=== PATIENT | female | born 1990 | race Caucasian/White ===

== ENCOUNTER 2017-08-06 20:21 | Inpatient (IN) | payer MEDICAID ==
[~2017-08-06] VITALS: Ht 175.3 cm; Wt 106.3 kg
[2017-08-06 21:13] LABS: BASOPHILS # (AUTO) 0.06 x10^3/uL (0-0.1); BASOPHILS % (AUTO) 1 % (0-1); EOSINOPHILS % (AUTO) 6 % (1-7); LYMPHOCYTES # (AUTO) 1.62 x10^3/uL (1-3.4); LYMPHOCYTES % (AUTO) 23 % (22-44); MD NO; MEAN CORPUSCULAR HEMOGLOBIN 30.7 pg (27.0-34.8); MEAN CORPUSCULAR HGB CONC 33.5 g/dL (32.4-35.8); MEAN CORPUSCULAR VOLUME 91.5 fL (80-100); MEAN PLATELET VOLUME 9.7 fL (7.4-10.4); MONOCYTES # (AUTO) 0.77 x10^3/uL (0.2-0.8); MONOCYTES % (AUTO) 11 % (2-9); NEUTROPHILS # (AUTO) 4.14 x10^3/uL (1.8-6.8); NEUTROPHILS % (AUTO) 59 % (42-75); PLATELET COUNT 247 x10^3/uL (130-400); RED BLOOD COUNT 4.54 x10^6/uL (3.82-5.3); RED CELL DISTRIBUTION WIDTH 13.8 % (9.6-15.2)
[2017-08-06] MEDS ORDERED: SODIUM CHLORIDE 0.9% 1,000 ML IV ONE ×2 (21:19→23:00)
[2017-08-06 21:20] LABS: ALANINE AMINOTRANSFERASE 21 U/L (12-78); ALBUMIN 3.7 g/dL (3.4-5.0); ANION GAP 9 mmol/L (5-15); CALCIUM 8.1 mg/dL (8.5-10.1); CHLORIDE 110 mmol/L (98-107); CREATININE 0.71 mg/dL (0.55-1.02)
[2017-08-06 21:25] LABS: ACETAMINOPHEN < 2 mcg/mL (10-30); ALKALINE PHOSPHATASE 44 U/L (45-117); BILIRUBIN,TOTAL 0.1 mg/dL (0.2-1.0); SALICYLATE LEVEL 2.7 mg/dL (2.8-20.0); TOTAL PROTEIN 7.5 g/dL (6.4-8.2)
[2017-08-06] MEDS ORDERED: SODIUM CHLORIDE 0.9% 1,000ML IVBOLUS ONE (21:30)
[2017-08-06 22:38] LABS: CULTURE INDICATED? YES; MICROSCOPIC INDICATED
[2017-08-06 22:43] LABS: AMPHETAMINE SCREEN, URINE Positive (Negative); BARBITURATE SCREEN, URINE Negative (Negative); BENZODIAZEPINE SCREEN, URINE Positive (Negative); CANNABINOID SCREEN, URINE Positive (Negative); COCAINE SCREEN, URINE Negative (Negative); METHADONE SCREEN, URINE Negative (Negative); OPIATE SCREEN, URINE Positive (Negative)
[2017-08-06] MEDS ORDERED: SODIUM CHLORIDE FLUSH 10ML SYR IVF PRN (23:00)
[2017-08-06] MEDS ORDERED: CEFTRIAXONE PMX 1GM/50ML 50 ML IV ONE (23:00)
[2017-08-07 00:42] VITALS: BP 123/73
[2017-08-07 01:22] VITALS: BP 117/87
[2017-08-07] MEDS: SODIUM CHLORIDE 0.9% 1,000 ML IV SCH ×2 (02:14→13:21)
[2017-08-07] MEDS ORDERED: DOCUSATE 100 MG CAPSULE PO PRN (02:30)
[2017-08-07] MEDS ORDERED: morphine SULFATE 10 MG/ML, 1ML IVPush PRN (02:30)
[2017-08-07] MEDS ORDERED: OXYcodone IR 5MG TABLET PO PRN (02:30)
[2017-08-07] MEDS ORDERED: ACETAMINOPHEN 325 MG TABLET PO PRN (02:30)
[2017-08-07] MEDS ORDERED: CEFTRIAXONE PMX 1GM/50ML 50 ML IV SCH (02:30)
[2017-08-07] MEDS ORDERED: hydrALAzine 20 MG/ML, 1ML IVPush PRN (02:30)
[2017-08-07] MEDS ORDERED: ONDANSETRON 2MG/ML, 2ML IVPush PRN (02:30)
[2017-08-07 03:00] LABS: HEMOGLOBIN A1C 5.8 % (4.2-6.3)
[2017-08-07 03:03] LABS: FREE T4 (FREE THYROXINE) 0.85 ng/dL (0.76-1.46); THYROID STIMULATING HORMONE 1.35 mIU/L (0.358-3.740)
[2017-08-07] MEDS ORDERED: ASPIRIN 325 MG TABLET EC PO SCH (06:00)
[2017-08-07 08:30] VITALS: BP 106/61
[2017-08-07] MEDS: LORazepam 2 MG/ML, 1ML IVPush PRN ×2 (14:55→20:22)
[2017-08-07 16:57] VITALS: BP 110/62
[2017-08-07 18:45] VITALS: BP 118/71
[2017-08-07] MEDS ORDERED: ZIPRASIDONE 20 MG INJ IM ONE (22:30)
[2017-08-08] MEDS ORDERED: ZIPRASIDONE 20 MG INJ IM ONE
[2017-08-08] MEDS ORDERED: LORazepam 2 MG/ML, 1ML IVPush ONE
[2017-08-08 01:27] VITALS: BP 125/69
[2017-08-08 04:30] LABS: BASOPHILS # (AUTO) 0.01 x10^3/uL (0-0.1); BASOPHILS % (AUTO) 0 % (0-1); EOSINOPHILS # (AUTO) 0.41 x10^3/uL (0-0.4); EOSINOPHILS % (AUTO) 5 % (1-7); LYMPHOCYTES # (AUTO) 1.54 x10^3/uL (1-3.4); LYMPHOCYTES % (AUTO) 21 % (22-44); MD NO; MEAN CORPUSCULAR HEMOGLOBIN 30.7 pg (27.0-34.8); MEAN CORPUSCULAR HGB CONC 33.3 g/dL (32.4-35.8); MEAN CORPUSCULAR VOLUME 92.1 fL (80-100); MONOCYTES # (AUTO) 0.74 x10^3/uL (0.2-0.8); MONOCYTES % (AUTO) 10 % (2-9); NEUTROPHILS # (AUTO) 4.83 x10^3/uL (1.8-6.8); NEUTROPHILS % (AUTO) 64 % (42-75); PLATELET COUNT 222 x10^3/uL (130-400); RED BLOOD COUNT 4.21 x10^6/uL (3.82-5.3); RED CELL DISTRIBUTION WIDTH 13.9 % (9.6-15.2)
[2017-08-08] MEDS: LORazepam 2 MG/ML, 1ML IVPush PRN ×2 (04:36→08:30)
[2017-08-08 04:42] LABS: ALBUMIN 3.1 g/dL (3.4-5.0); CALCIUM 8.1 mg/dL (8.5-10.1); CHLORIDE 112 mmol/L (98-107)
[2017-08-08 04:48] LABS: ALANINE AMINOTRANSFERASE 18 U/L (12-78); ALKALINE PHOSPHATASE 39 U/L (45-117); ANION GAP 7 mmol/L (5-15); BILIRUBIN,TOTAL 0.2 mg/dL (0.2-1.0); CHOL/HDL RATIO 3.5; CHOLESTEROL, TOTAL 137 mg/dL (140-239); CREATININE 0.62 mg/dL (0.55-1.02); HDL CHOL % 28 % (28-40); HDL CHOLESTEROL (DIRECT) 39 mg/dL (40-60); LDL CHOLESTEROL,CALCULATED 72 mg/dL (54-169); LDL/HDL RATIO 1.8 (0.5-3.0); TOTAL PROTEIN 6.9 g/dL (6.4-8.2); TRIGLYCERIDES 130 mg/dL (50-200); VLDL CHOLESTEROL 26 mg/dL (0-25)
[2017-08-08 07:32] VITALS: BP 137/88
[2017-08-08] MEDS ORDERED: CEPH-368 PO (11:23)
== END 2017-08-08 12:28 | disposition home or self-care (01) | DRG 918 ==
LOC: ED 23:35 → EDIP 23:40 → 4WST 08-07 00:34
PROVIDERS: ADMIT Internal Medicine; ATTEND Internal Medicine
DX: T40.2X2A Poisoning by other opioids, intentional self-harm, initial encounter (principal); F33.3 Major depressive disorder, recurrent, severe with psychotic symptoms; B96.20 Unspecified Escherichia coli [E. coli] as the cause of diseases classified elsewhere; N30.90 Cystitis, unspecified without hematuria; F15.129 Other stimulant abuse with intoxication, unspecified; F15.159 Other stimulant abuse with stimulant-induced psychotic disorder, unspecified; T42.4X2A Poisoning by benzodiazepines, intentional self-harm, initial encounter; Z65.3 Problems related to other legal circumstances; Y92.89 Other specified places as the place of occurrence of the external cause
CPT/HCPCS: 36415; 80053; 80061; 80307; 80329; 81001; 83036; 83735; 84439; 84443; 84703; 85025; 87077; 87086; 87186; 93005; 99285; J0696; J3486; G0480; J2060; J7030